=== PATIENT | female | born 2000 | race Caucasian/White ===

== ENCOUNTER 2021-08-27 15:51 | Emergency (ER) | payer OTHER ==
[2021-08-27 16:35] LABS: Bilirubin Neg (Negative); Blood, Urine 250 (Negative); Clarity Bloody (Clear); Glucose, Urine (Dipstick) Normal (Negative); Ketone, Urine Negative (Negative); Leukocyte 100 (Negative); Nitrite Negative (Negative); Protein, Urine (Dipstick) 500 mg/dl (Neg-Trace); Specific Gravity, Urine 1.015 (1.002-1.036); Urobilinogen Normal mg/dL (Less than 2)
[2021-08-27 16:42] LABS: Bacteria/HPF 1+ HPF (None Seen); Mucous/LPF Rare LPF (<2+); RBC/HPF Greater than 50 HPF (0-3); Squamous Epithelial 0-3 HPF (0-3); WBC/HPF 21-50 HPF (0-3)
[2021-08-27] MEDS ORDERED: Nitrofurantoin Monohyd/M-Cryst 100 MG CAP PO SCH (17:00)
== END 2021-08-27 17:12 | disposition home or self-care (01) ==
LOC: CSHERS 15:51
DX: N39.0 Urinary tract infection, site not specified (principal)
CPT/HCPCS: 81003; 81015; 99283

== ENCOUNTER 2021-11-04 17:12 | Emergency (ER) | payer OTHER ==
[2021-11-04 17:49] LABS: #Basophils 0.1 10x3/uL (0.0-0.2); #Monocytes 0.3 10x3/uL (0.0-1.1); #Neutrophils 2.6 10x3/uL (1.5-8.4); %Eosinophils 0.4 % (0.0-6.0); %Lymphocytes 42.3 % (18.0-47.0); %Monocytes 5.6 % (0.0-10.0); %Neutrophils 50.5 % (40.0-75.0); Hemoglobin 12.2 g/dL (12.0-15.5); Mean Corpuscular HGB CONC 32.9 g/dL (32.0-36.0); Mean Corpuscular Hemoglobin 25.6 pg (27.0-33.0); Mean Corpuscular Volume 77.8 fl (81.6-98.3); Mean Platelet Volume 9.7 fl (7.4-10.4); Platelet Count 295 10x3/uL (150-450); RBC Distribution Width 14.5 % (11.5-14.5); Red Blood Cell (RBC) Count 4.77 10x6/uL (3.90-5.03); White Blood Cell (WBC) Count 5.2 10x3/uL (3.5-10.5)
[2021-11-04 18:00] LABS: ALT (SGPT) 18 U/L (8-55); AST (SGOT) 20 U/L (5-34); Albumin 4.7 g/dL (3.5-5.0); Alkaline Phosphatase 49 U/L (40-100); Anion Gap 17 mmol/L (10-20); BUN (Urea Nitrogen) 7 mg/dL (7.0-18.7); Bilirubin, Total 0.6 mg/dL (0.2-1.2); Calc. Creatinine Clearance 0 mL/min (70-130); Calcium 9.8 mg/dL (7.8-10.44); Carbon Dioxide 22 mmol/L (22-29); Chloride 103 mmol/L (98-107); Estimated GFR 107; Globulin 2.8 g/dL (2.4-3.5); Glucose 98 mg/dL (70-105); Potassium 3.3 mmol/L (3.5-5.1); Protein, Total 7.5 g/dL (6.0-8.3); Sodium 139 mmol/L (136-145)
== END 2021-11-04 18:53 | disposition home or self-care (01) ==
LOC: CSHERS 17:12
DX: R06.02 Shortness of breath (principal); R00.0 Tachycardia, unspecified
CPT/HCPCS: 71045; 80053; 83880; 84484; 85025; 85379; 93005; 96360

== ENCOUNTER 2021-11-12 18:22 | Emergency (ER) | payer OTHER ==
[~2021-11-12 18:22] MED LIST: Iopamidol 370 76% 100 ML VIAL ONE
[2021-11-12 19:12] LABS: #Basophils 0.1 10x3/uL (0.0-0.2); #Monocytes 0.3 10x3/uL (0.0-1.1); #Neutrophils 2.8 10x3/uL (1.5-8.4); %Eosinophils 0.4 % (0.0-6.0); %Lymphocytes 35.8 % (18.0-47.0); %Monocytes 6.3 % (0.0-10.0); %Neutrophils 56.3 % (40.0-75.0); Hemoglobin 11.7 g/dL (12.0-15.5); Mean Corpuscular HGB CONC 33.3 g/dL (32.0-36.0); Mean Corpuscular Hemoglobin 25.7 pg (27.0-33.0); Platelet Count 215 10x3/uL (150-450); RBC Distribution Width 14.6 % (11.5-14.5); Red Blood Cell (RBC) Count 4.56 10x6/uL (3.90-5.03); White Blood Cell (WBC) Count 5.1 10x3/uL (3.5-10.5)
[2021-11-12 19:22] LABS: BHCG - Serum Negative (NEGATIVE); Pregs Control Background? CLEAR/WHITE (CLR/WHITE); Pregs Control Bar Appear? YES (CONTROL BAR)
[2021-11-12] MEDS ORDERED: Ondansetron PF 4 MG/2 ML Vial ONE (19:27)
[2021-11-12 19:28] LABS: Anion Gap 16 mmol/L (10-20); BUN (Urea Nitrogen) 12 mg/dL (7.0-18.7); Calc. Creatinine Clearance 0 mL/min (70-130); Calcium 9.7 mg/dL (7.8-10.44); Carbon Dioxide 21 mmol/L (22-29); Chloride 100 mmol/L (98-107); Estimated GFR 90; Glucose 95 mg/dL (70-105); Potassium 3.4 mmol/L (3.5-5.1); Sodium 134 mmol/L (136-145)
[2021-11-12] MEDS ORDERED: Ketorolac Tromethamine 30 MG/ML VIAL ONE (20:51)
== END 2021-11-12 21:00 | disposition home or self-care (01) ==
LOC: CSHERS 18:22
DX: R07.9 Chest pain, unspecified (principal)
CPT/HCPCS: 71045; 71275; 80048; 83605; 84484; 84703; 85025; 93005; 96374; 96375; J1885; J2405; Q9967